=== PATIENT | male | born 1985 | race Caucasian/White ===

== ENCOUNTER 2018-12-11 14:42 | Emergency (ER) | payer OTHER ==
[2018-12-11] MEDS ORDERED: IBUPROFEN 800 MG TABLET PO ONE (15:36)
--- NOTE | 2018-12-11 15:59 | ER Document Report ---
HPI - HPI Patient complains to provider of: left forearm puncture wound Time Seen by Provider: 12/11/18 15:31 Onset: This afternoon Onset/Duration: Sudden Quality of pain: Achy Severity: Moderate Pain Level: 3 Context: Patient presents to the emergency department with complaints of left forearm puncture wound. He reports he was working with wood and a drill type instrument when it moved and he poked himself in the forearm. He denies allergies. Reports he looked in the hole and it looks like he saw tendons. Area still bleeding. Denies allergies. No other complaints. Denies numbness tingling to the hand. 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 Associated Symptoms: None Exacerbated by: Denies Relieved by: Denies Similar symptoms previously: No Recently seen / treated by doctor: No Past Medical History - General Information source: Patient - Social History Smoking Status: Unknown if Ever Smoked Cigarette use (# per day): No Frequency of alcohol use: None Drug Abuse: None Occupation: [employer] Lives with: Family Family History: None Patient has suicidal ideation: No Patient has homicidal ideation: No - Medical History Medical History: Negative Past Surgical History: Reports: Hx Inguinal Hernia Vertical Provider Document - CONSTITUTIONAL Agree With Documented VS: Yes Exam Limitations: No Limitations General Appearance: WD/WN, No Apparent Distress - INFECTION CONTROL TRAVEL OUTSIDE OF THE [place] IN LAST 30 DAYS: No - HEENT HEENT: Atraumatic - NECK Neck: Supple - RESPIRATORY Respiratory: No Respiratory Distress - CARDIOVASCULAR Cardiovascular: Regular Rate - MUSCULOSKELETAL/EXTREMETIES Musculoskeletal/Extremeties: MAEW, FROM, Tender - NEURO Level of Consciousness: Awake, Alert, Appropriate - DERM Integumentary: Warm, Dry, Laceration Adult Front & Back Diagram: 1 - Small puncture wound ~5MM, to the left forearm no active bleeding at this time full range of motion flexes and extends house arm without problems no swelling warmth discharge no erythema Course - Re-evaluation Re-evalutation: 12/11/18 15:58 Patient reports he is worried woodchips when in the area. Will do x-ray to evaluate. 12/11/18 16:16 X-ray is negative for foreign bodies. Patient will be placed on Keflex prophylactic antibiotics patient instructed on signs and symptoms of them. Instructed to keep the area clean and covered and follow-up with his BAS tomorrow. He verbalized understanding to all instructions. Dictation of this chart was performed using voice recognition software; therefore, there may be some unintended grammatical errors. - Vital Signs Vital signs: Temp Pulse Resp BP Pulse Ox 98.1 F 71 16 135/76 H 98 12/11/18 14:58 12/11/18 14:58 12/11/18 14:58 12/11/18 14:58 12/11/18 14:58 - Diagnostic Test Radiology reviewed: Image reviewed, Reports reviewed - EXAM DESCRIPTION: FOREARM LEFT COMPLETED DATE/TIME: 12/11/2018 3:49 pm REASON FOR STUDY: puncture wound ?fb COMPARISON: None. NUMBER OF VIEWS: Two views. TECHNIQUE: Two radiographic images acquired of the left forearm, including elbow and wrist in at least one projection. LIMITATIONS: None. FINDINGS: MINERALIZATION: Normal. BONES: No acute fracture. No worrisome bone lesions. SOFT TISSUES: No obvious swelling or foreign body. OTHER: No other significant finding. IMPRESSION: NEGATIVE STUDY OF THE LEFT FOREARM. NO RADIOGRAPHIC EVIDENCE OF ACUTE INJURY. TECHNICAL DOCUMENTATION: JOB ID: [id number] [employer]- All Rights Reserved Reading location - IP/workstation name: [email or web address] Dictated by: TENNILLE GEIGER MD [id number] CC: JOSE MOREIRA NP > 12/11/18 1603 Principal Sleeve Setter Safety Stitch Name: TENNILLE GEIGER Provider ID: [id number] Discharge - Discharge Clinical Impression: Puncture wound of left forearm Qualifiers: Encounter type: initial encounter Qualified Code(s): S51.832A - Puncture wound without foreign body of left forearm, initial encounter Condition: Stable Disposition: HOME, SELF-CARE Instructions: Cephalexin ([facility]), Use of [id number]-Cgg-[id number] Ibuprofen ([facility]), Puncture Wound ([facility]) Additional Instructions: *You have been treated for a puncture wound *Take medication as prescribed *Monitor the site for signs of infection such as increasing pain, redness, sw elling, warmth *keep The area clean *Follow up with your BAS tomorrow for a recheck *Return to ED for signs of infection, worsening condition, changes, needs Monitor your blood pressure. Your blood pressure was elevated today. This may be because you were anxious, in pain or because you need medication. It is important to follow up with your primary care provider for full evaluation. Prescriptions: Cephalexin Monohydrate [Keflex 500 mg Capsule] 500 mg PO QID #20 capsule Forms: Elevated Blood Pressure
--- NOTE | 2018-12-11 16:03 | RADIOLOGY REPORT (SQ) ---
EXAM DESCRIPTION: FOREARM LEFT COMPLETED DATE/TIME: 12/11/2018 3:49 pm REASON FOR STUDY: puncture wound ?fb COMPARISON: None. NUMBER OF VIEWS: Two views. TECHNIQUE: Two radiographic images acquired of the left forearm, including elbow and wrist in at [address] one projection. LIMITATIONS: None. FINDINGS: MINERALIZATION: Normal. BONES: No acute fracture. No worrisome bone lesions. SOFT TISSUES: No obvious swelling or foreign body. OTHER: No other significant finding. IMPRESSION: NEGATIVE STUDY OF THE LEFT FOREARM. NO RADIOGRAPHIC EVIDENCE OF ACUTE INJURY. TECHNICAL DOCUMENTATION: JOB ID: [id number] [employer]- All Rights Reserved Reading location - IP/workstation name: [email or web address]
[2018-12-11 17:00] VITALS: BP 111/66
== END 2018-12-11 17:00 | disposition home or self-care (01) ==
LOC: ER 14:42
DX: S51.832A Puncture wound without foreign body of left forearm, initial encounter (principal); W29.8XXA Contact with other powered hand tools and household machinery, initial encounter
CPT/HCPCS: 99283

== ENCOUNTER 2019-03-18 12:29 | Emergency (ER) | payer OTHER ==
[2019-03-18 12:34] VITALS: BP 120/75
[2019-03-18] MEDS ORDERED: PREDNISONE 20 MG TABLET PO ONE (12:57)
--- NOTE | 2019-03-18 13:04 | ER Document Report ---
HPI - HPI Patient complains to provider of: rash Time Seen by Provider: 03/18/19 12:48 Pain Level: 1 Context: Healthy 33-year-old male presents emergency department for rash. 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 Patient states that it is extremely itchy and he has tried essential oils and some basic lotions. Patient was working out in the yard approximately 2 days prior to the start of the rash. No history of poison parvin or poison oak. Denies fevers or chills, nausea or vomiting, acute weakness, stiff neck, no other complaints Past Medical History - Social History Smoking Status: Unknown if Ever Smoked Family History: None Renal/ Medical History: Denies: Hx Peritoneal Dialysis Past Surgical History: Reports: Hx Inguinal Hernia Vertical Provider Document - CONSTITUTIONAL Notes: PHYSICAL EXAMINATION: Reviewed vital signs and charting by RN GENERAL: Alert, interacts well. No acute distress. HEAD: Normocephalic, atraumatic. EYES: Pupils equal and round. Extraocular movements intact. ENT: Oral mucosa moist, tongue midline. NECK: Full range of motion. Trachea midline. EXTREMITIES: Moves all 4 extremities spontaneously. No edema, No cyanosis. PSYCH: Normal affect, normal mood. SKIN: Warm, dry, normal turgor. Large areas of plaque like erythematous raised rash on bilateral knees, dorsal feet and ankles, dorsal hands and wrists sparing the palms and soles. Blanchable, no weeping fluid coming from the rash appears consistent with a poison parvin or poison oak. - INFECTION CONTROL TRAVEL OUTSIDE OF THE [place] IN LAST 30 DAYS: No Course - Re-evaluation Re-evalutation: 03/18/19 13:04 History and symptoms consistent with some type of a environmental contact dermatitis. Plan is to treat him with a steroid taper. No fevers or stiff neck to be concerned about meningitis, no water exposure to be concerned about flush eating bacteria. Discussed with patient plan for steroid taper and strict return precautions. Patient agrees with plan is stable for discharge. - Vital Signs Vital signs: Temp Pulse Resp BP Pulse Ox 98.3 F 92 16 120/75 98 03/18/19 12:32 03/18/19 12:32 03/18/19 12:32 03/18/19 12:32 03/18/19 12:32 Discharge - Discharge Clinical Impression: Rash and nonspecific skin eruption, Poison oak dermatitis Condition: Good Disposition: HOME, SELF-CARE Additional Instructions: Your being seen today for poison oak. Please take the steroid taper as directed. Return for any difficulty breathing, vomiting, passing out, or any other symptoms that are worrisome to you. Steroid taper should be taken as follows: Days 1-7: 60mg PO daily Days 8-14: 40mg PO daily Days 15-21: 20mg PO daily Prescriptions: Hydroxyzine HCl [Atarax 50 mg Tablet] 50 mg PO Q8H PRN #30 tablet PRN Reason: Prednisone [Deltasone 20 mg Tablet] 20 mg PO DAILY 21 Days #42 tablet
== END 2019-03-18 13:18 | disposition home or self-care (01) ==
LOC: ER 12:29
DX: L23.7 Allergic contact dermatitis due to plants, except food (principal)
CPT/HCPCS: 99282; J7512